=== PATIENT | male | born 1970 | race Caucasian/White ===

== ENCOUNTER 2017-01-08 11:08 | Inpatient (IN) | payer BC, OTHER ==
[~2017-01-08] VITALS: Ht 170.2 cm; Wt 79.4 kg
[2017-01-08 16:10] VITALS: BP 122/63
--- NOTE | 2017-01-08 16:10 | NUR ---
INTAKE ASSESSMENT Patient is 46 yo male patient presented for admission for supervised withdrawal from oxycodone. Patient is alert and oriented X4. Patient has NKA. Denies use of alcohol, uses e-cigarette. Vital signs: 122/68, HR 63, RR 18, 02 sat 98% RA, pain 0/10. Patient denies chest pain and SOB. Patient reports anxiety, nausea, tremors, sweating, stomach cramping and body aches. Patient has no rehab history. Patient reports last use of oxycodone was today 01/08/17, used 600mg, 1st use was 3 months ago, was using 1 pill sporadically and then increased to pills. Patient reports history of anxiety, depression, and low back pain. Denies history of seizure and fall. Patients home meds includes Xanax, lamictal, zyprexa, Mysoline and Effexor. Patient reports father has history of Type 2 diabetes. Willis routines explained to patient (i.e q4h vital, medication handling including narcotics , disposal of any contraband. Patient has no home meds. Patient appears to be stable to proceed with his admission to [facility] for further care.
[2017-01-08] MEDS ORDERED: ONDANSETRON ODT 4 MG TAB.RAPDIS SL PRN (16:45)
[2017-01-08] MEDS ORDERED: DICYCLOMINE HCL 20 MG TABLET PO PRN (16:45)
[2017-01-08] MEDS ORDERED: ACETAMINOPHEN 325 MG TABLET PO PRN (16:45)
[2017-01-08] MEDS ORDERED: IBUPROFEN 600 MG TABLET PO PRN (16:45)
[2017-01-08] MEDS ORDERED: diphenhydrAMINE 50 MG CAPSULE PO PRN (16:45)
[2017-01-08] MEDS ORDERED: BUPRENORPHINE HCL 2 MG TAB.SUBL SL PRN (16:45)
[2017-01-08] MEDS ORDERED: ONDANSETRON 4 MG/2 ML VIAL IM PRN (16:45)
[2017-01-08] MEDS ORDERED: LORAZEPAM 1 MG TABLET PO PRN ×3 (16:45→20:00)
[2017-01-08] MEDS ORDERED: LOPERAMIDE HCL 2 MG CAPSULE PO PRN ×2 (16:45)
[2017-01-08] MEDS ORDERED: MIRALAX 17 GM POWD.PACK PO PRN (16:45)
[2017-01-08] MEDS ORDERED: HYDROXYZINE PAMOATE 25 MG CAPSULE PO PRN (16:45)
[2017-01-08] MEDS ORDERED: MAG HYDROX/AL HYDROX/SIMETH 30 ML LIQUID UDC PO PRN (16:45)
--- NOTE | 2017-01-08 17:06 | NUR ---
DEFER REASSESSMENT OF ONE TIME LORAZEPAM, BACLOFEN, GABAPENTIN AND KETOROLAC IM INJECTION Patient appears asleep at this time, no respiratory distress noted.
[2017-01-08 17:26] LABS: ALANINE AMINOTRANSFERASE 122 U/L (16-63); ALKALINE PHOSPHATASE 60 U/L (50-136); ASPARTATE AMINOTRANSFERASE 39 U/L (15-37); BILIRUBIN,TOTAL 0.3 mg/dL (0.2-1.0); CARBON DIOXIDE 32 mmol/L (21-32); CHLORIDE 102 mmol/L (98-107); CREATININE 1.3 mg/dL (0.6-1.3); GLUCOSE 93 mg/dL (74-106); MAGNESIUM 1.9 mg/dL (1.8-2.4); TOTAL PROTEIN, SERUM 7.3 g/dL (6.4-8.2); UREA NITROGEN, BLOOD 12 mg/dL (7-18)
[2017-01-08 17:29] LABS: BASOPHILS # (AUTO) 0.1 K/uL (0.0-8.0); BASOPHILS % (AUTO) 0.6 % (0.0-2.0); EOSINOPHILS # (AUTO) 0.5 K/uL (0.0-0.7); EOSINOPHILS % (AUTO) 4.7 % (0.0-7.0); ETHANOL < 3 MG/DL (0-0); HEMATOCRIT 46.1 % (40-50); LYMPHOCYTES # (AUTO) 3.6 K/UL (0.8-4.8); LYMPHOCYTES % (AUTO) 32.2 % (20.5-51.5); MEAN CORPUSCULAR HEMOGLOBIN 28.1 UUG (27.0-31.0); MEAN CORPUSCULAR HGB CONC 33 g/dL (32.0-37.0); MEAN CORPUSCULAR VOLUME 86.3 FL (82.0-92.0); MONOCYTES # (AUTO) 0.9 K/UL (0.1-1.30); MONOCYTES % (AUTO) 8.2 % (0.0-11.0); NEUTROPHILS # (AUTO) 6.1 K/UL (1.8-8.9); NEUTROPHILS % (AUTO) 54.3 % (38.5-71.5); PLATELET COUNT (AUTO) 271 K/UL (150-450); RED BLOOD CELL COUNT(AUTO) 5.35 MIL/UL (4.7-6.1); WHITE BLOOD COUNT (AUTO) 11.2 K/UL (4.0-11.2)
[2017-01-08] MEDS ORDERED: LAMO100T2 PO (17:31)
[2017-01-08] MEDS ORDERED: VENL75CA56 PO (17:35)
[2017-01-08] MEDS ORDERED: OLAN2.5T3 PO (17:36)
[2017-01-08] MEDS ORDERED: PRIM50TA27 PO (17:36)
[2017-01-08] MEDS ORDERED: GABAPENTIN 300 MG CAPSULE PO ONE (18:00)
[2017-01-08] MEDS ORDERED: BACLOFEN 20 MG TABLET PO ONE (18:00)
[2017-01-08] MEDS ORDERED: KETOROLAC TROMETHAMINE 30 MG INJ IM ONE (18:00)
[2017-01-08] MEDS ORDERED: LORAZEPAM 1 MG TABLET PO ONE ×2 (18:00→21:00)
--- NOTE | 2017-01-08 18:06 | NUR ---
ONE TIME LORAZEPAM, BACLOFEN, GABAPENTIN AND KETOROLAC IM INJECTION Patient is complaining of moderate-severe body ache and reports increasing anxiety. Patient received one time order of lorazepam, baclofen, gabapentin, and ketorolac IM injection. Will continue to monitor patient.
[2017-01-08 18:21] LABS: *AMPHETAMINE, URINE NEGATIVE (NEGATIVE); *BARBITURATE, URINE POSITIVE (NEGATIVE); *CANNABINOID, URINE POSITIVE (NEGATIVE); *COCCAINE, URINE NEGATIVE (NEGATIVE); *OPIATE, URINE POSITIVE (NEGATIVE); *PHENCYCLIDINE SCREEN,URINE NEGATIVE (NEGATIVE)
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
[2017-01-08 20:00] VITALS: BP 122/90
[2017-01-08] MEDS ORDERED: LORAZEPAM 2 MG/1 ML VIAL IM PRN (20:00)
--- NOTE | 2017-01-08 20:00 | NUR ---
2000 Patient received sleeping soundly in prone position with deep, stenorous, even respirations at 14. Patient aroused for vital signs and nurse assess. Patient responds to nurse's greeting and introduction with brief eye contact and no verbalization. Patient does want answer nurse's assess questions, though they are clearly and repeatedly asked of him. Patient's color is tannish-pink and his skin is clean, warm, dry and intact. Patient's regular diet tray in untouched on his bedside table and he does not answer questions about anything. Vital signs are: 98.6-99-22 122/90, O2 Sat 97%, COWS 6 Patient offers no c/o anything or requests for anything and he does not answer when nurse asks him if he is feeling any pain or other discomforts at this time. Patient was admitted today, 01/08/17 for Oxycodone withdrawal and he is currently on PRN medications for withdrawal symptoms. Patient is overall non-verbal with eyes kept closed with virtually no interaction with nurse. Bed is locked and in lowest position, bed rails are up X 2 and call light within patient's easy reach.
[2017-01-08] MEDS: PRIMIDONE 50 MG TABLET PO SCH (21:00)
[2017-01-08] MEDS: GABAPENTIN 300 MG CAPSULE PO SCH (21:00)
[2017-01-08] MEDS ORDERED: PATIENT MAY USE OWN MED- MD OK PO SCH (21:00)
[2017-01-08] MEDS: METHOCARBAMOL 750 MG TABLET PO PRN (21:11)
--- NOTE | 2017-01-08 21:11 | NUR ---
PRN MEDICATION: Prn Robaxin 750 mg p.. given for c/o generalized body pain 02/07.
--- NOTE | 2017-01-08 21:12 | NUR ---
PRN MEDICATION: Prn Subutex 4 mg SL given for loud crying , body writhing, uncontrollable body shakes, high anxiety and increasing agitation. COWS 12. patient states loudly, " Oh! I will never go through this again!! Oh! It's terrible!"
--- NOTE | 2017-01-08 22:12 | NUR ---
REASSESSMENT PRN MEDICATION: Patient resting quietly. Aroused for COWS assess, COWS 4 at this time from 12 at 2111.
[2017-01-08] MEDS ORDERED: KETOROLAC TROMETHAMINE 30 MG INJ IM PRN (23:59)
[2017-01-09] VITALS: BP 129/83
[2017-01-09 04:00] VITALS: BP 135/84
[2017-01-09 06:07] LABS: HEPATITIS B SURFACE AG Negative (Negative)
--- NOTE | 2017-01-09 06:30 | NUR ---
0630 Patient slept a total of 8 hours/ 45 minutes and he had 0 voids and no stools. Total intake was 296 ml p.o. Prn medications given noted separately per floor protocol. V/SS afebrile, last COWS 1 at 0400. Patient is presently sleeping soundly with eyes closed and respirations deep, stenorous and unlabored at 14.
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
[2017-01-09 08:00] VITALS: BP 151/89
[2017-01-09] MEDS ORDERED: TUBERCULIN,PURIF.PROT.DERIV. 5 TU/0.1 ML TEST ID ONE (09:00)
[2017-01-09] MEDS: BUPRENORPHINE HCL 2 MG TAB.SUBL SL SCH ×4 (09:03→20:24)
[2017-01-09] MEDS: METHOCARBAMOL 750 MG TABLET PO PRN (09:05)
[2017-01-09] MEDS: CLONIDINE HCL 0.1 MG TABLET PO PRN (09:05)
[2017-01-09] MEDS: GABAPENTIN 300 MG CAPSULE PO SCH ×2 (09:05→20:26)
--- NOTE | 2017-01-09 09:05 | NUR ---
Toradol 30mg IM/Robaxin 750mg/Clonidine 0.1mg PO given: Patient's COWS 16/CIWA 13. Noted patient with generalized gross tremos. Anxious, agitated, tearful and complains of 9/10 generalized pain. Also noted with sweating. Denies S/I or H/I. Denies AV hallucinations. Mediated patient with Toradol 30 mg IM, Robaxin 750mg PO and Clonidine 0.1mg PO as ordered. BP 151/89, Pulse 100. PL 02/07. Will monitor for effectiveness. Safety precautions in place.
[2017-01-09] MEDS: MULTIVITAMINS,THERAPEUTIC TABLET PO SCH (09:06)
[2017-01-09] MEDS: LORAZEPAM 1 MG TABLET PO SCH ×4 (09:06→20:23)
--- NOTE | 2017-01-09 09:35 | NUR ---
Re-assessment: Toradol 30mg IM: Per patient, PRN Toradol was mildly effective in reducing patient's pain. Verbalized PL 4/10 at this time.
--- NOTE | 2017-01-09 10:05 | NUR ---
Re-assessment: Robaxin and Clonidine Per patient, PRN Robaxin was mildly effective in reducing pain. PL 4/10. Less anxiety, sweating and agitation noted. Will continue to monitor the patient and notify MD of patient's progress.
[2017-01-09] MEDS ORDERED: VENLAFAXINE XR 150 MG CAP.SR.24H PO SCH (11:45)
[2017-01-09] MEDS ORDERED: VENLAFAXINE XR 75 MG CAP.SR.24H PO SCH (11:45)
[2017-01-09] MEDS ORDERED: LAMOTRIGINE 100 MG TABLET PO SCH (11:45)
[2017-01-09 12:00] VITALS: BP 109/59
--- NOTE | 2017-01-09 12:48 | NUR ---
Psych MD Communication: Order clarification obtained from Dr. Guzman regarding Effexor and Lamictal medications. Per patient, he uses Effexor 75mg in AM and 150mg at HS and Lamictal 100 mg PO at HS. Informed Dr. Guzman and order clarification was obtained. Orders noted and carried out. is unable to enter in orders. MD is currently driving. Telephone order was obtained.
[2017-01-09 16:00] VITALS: BP 117/62
--- NOTE | 2017-01-09 16:41 | NUR ---
Psych MD Communication: Order clarification obtained from Dr. Guzman regarding Zyprexa. Per patient, he uses Zyprexa 2.5mg PO at HS to help with sleep. Informed Dr. Guzman and order clarification was obtained. Orders noted and carried out. MD is unable to enter in orders. is currently driving. Telephone order was obtained.
[2017-01-09] MEDS ORDERED: OLANZAPINE 2.5 MG TABLET PO SCH (18:00)
--- NOTE | 2017-01-09 19:10 | NUR ---
End of Shift Notes: Patient continues to be on 5-day Subutex and 5-day Ativan taper for opiate and BZO withdrawal. Taper was initiated today. No adverse reactions noted. Tolerating both taper well. VS monitored closely. Medicated patient with Clonidine 0.1mg PO at 0905 for BP of 151/89 and anxiety with help after 1 hour. Withdrawal symptoms were closely monitored. Initial COWS 16/CIWA 13, patient presented with severe pain, anxiety, agitation, gross tremors, sweating, chills, hot flashes, abdominal cramps and muscle aches and pains. Medicated patient with Toradol 30 mg IM at 0905 and Robaxin 750 mg PO at 0905 with help after 1 hour. Per patient, Subutex and Ativan has been helping him with his withdrawal symptoms. Last COWS 7/CIWA 7. Denies S/I or H/I. Denies AV hallucinations noted. Unable to participate in group and activities due to his withdrawal symptoms. All needs met and attended. Will continue to monitor closely.
--- NOTE | 2017-01-09 19:30 | NUR ---
Start of shift notes: Received patient in bed, awake, alert and oriented times 4. Speech is clear, normal rate and able to make known of his needs. Behavior; calm and cooperative with care. Patient is isolative to his room. Patient has bathroom privileges and continue to be monitor by staff. Denies SI/HI/AVH. NO behavior outburst. Will continue to monitor behavior and medication effectiveness throughout shift.
[2017-01-09 20:00] VITALS: BP 121/78
[2017-01-09] MEDS: VENLAFAXINE XR 150 MG CAP.SR.24H PO SCH (20:25)
[2017-01-09] MEDS: OLANZAPINE 2.5 MG TABLET PO SCH (20:25)
[2017-01-09] MEDS: LAMOTRIGINE 100 MG TABLET PO SCH (20:26)
[2017-01-09] MEDS: PRIMIDONE 50 MG TABLET PO SCH (20:26)
[2017-01-10 00:37] VITALS: BP 125/82
--- NOTE | 2017-01-10 00:39 | NUR ---
Patient asleep. Respiration even and unlabored. No signs of distress. Easily aroused but refused CIWA and COWS at this time. Addendum: 01/10/17 at 0042 by CAROLE GUERRERO RN Amended: Links added.
[2017-01-10 05:09] VITALS: BP 135/69
--- NOTE | 2017-01-10 06:42 | NUR ---
End of shift note: Patient remained calm and cooperative with care. Alert and oriented x4. No adverse reaction noted or reported at this time. Compliant with plan of care and all unit rules. Vital signs monitored and charted accordingly. Vital signs remained stable and WNL. COWS is 1 @ 0400. CIWA is 1 @0400. No behavior issues. Patient slept comfortably for 9 hours. No signs of distress. normal breathing pattern.
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
[2017-01-10 08:00] VITALS: BP 128/82
[2017-01-10] MEDS: METHOCARBAMOL 750 MG TABLET PO PRN (08:37)
[2017-01-10] MEDS: LORAZEPAM 1 MG TABLET PO SCH ×3 (08:37→21:23)
[2017-01-10] MEDS: GABAPENTIN 300 MG CAPSULE PO SCH (08:37)
[2017-01-10] MEDS: MULTIVITAMINS,THERAPEUTIC TABLET PO SCH (08:37)
[2017-01-10] MEDS: BUPRENORPHINE HCL 2 MG TAB.SUBL SL SCH ×3 (08:37→21:24)
[2017-01-10] MEDS: VENLAFAXINE 75 MG TABLET PO SCH (08:37)
--- NOTE | 2017-01-10 08:37 | NUR ---
Motrin 600 mg PO/Bentyl 20 mg PO and Robaxin 750 mg Po given: Patient noted with complain of 5/10 stomach cramps and generalized myalgia related to withdrawal symptoms. Also noted with complain of 5/10 headache. Medicated patient with Motrin 600 mg PO, Bentyl 20 mg PO and Robaxin 750 mg PO as ordered. Will continue to monitor for effectiveness.
[2017-01-10] MEDS ORDERED: VENLAFAXINE 25 MG TABLET PO SCH (09:00)
--- NOTE | 2017-01-10 09:37 | NUR ---
Re-assessment: Per patient, PRN Motrin, Robaxin and Bentyl was effective in reducing headache, myalgia and abdominal cramps. PL 07/10.
--- NOTE | 2017-01-10 11:00 | NUR ---
MD Communication: Pulse Notified Dr. Mcguire of patient's pulse trending from 50-60. Per MD Mcguire, NNO.
[2017-01-10 12:00] VITALS: BP 122/71
[2017-01-10] MEDS: BACLOFEN 10 MG TABLET PO SCH ×2 (15:00→21:23)
[2017-01-10] MEDS: DICYCLOMINE HCL 20 MG TABLET PO SCH ×2 (15:00→21:23)
[2017-01-10] MEDS: GABAPENTIN 400 MG CAPSULE PO SCH ×2 (15:00→21:23)
--- NOTE | 2017-01-10 15:30 | NUR ---
Bentyl/Baclofen and Gabapentin at 1500 not administered: Patient noted laying in bed with eyes closed. Respirations even and unlabored. Mentioned meds were held at this time. aware.
[2017-01-10 16:00] VITALS: BP 143/94
--- NOTE | 2017-01-10 18:59 | NUR ---
End of Shift Notes: Patient continues to be on 5-day Subutex and 5-day Ativan taper for opiate and BZO withdrawal. No adverse reactions noted. Tolerating both taper well. VS monitored closely. Withdrawal symptoms were closely monitored. Initial COWS 8/CIWA 7, patient presented with myalgia, anxiety, agitation, gross tremors, sweating, chills, hot flashes, abdominal cramps . Medicated patient with Robaxin 750 mg PO, Motrin 600 mg PO and bentyl as ordered at 0837 with help after 1 hour. Per patient, Subutex and Ativan has been helping him with his withdrawal symptoms. Last COWS 5/CIWA 5. Denies S/I or H/I. Denies AV hallucinations noted. Unable to participate in group and activities due to his withdrawal symptoms. All needs met and attended. Will continue to monitor closely.
[2017-01-10 20:00] VITALS: BP 133/84
--- NOTE | 2017-01-10 20:00 | NUR ---
START OF SHIFT NOTE PATIENT IN ROOM, RESTING. RECEIVED REPORT FROM DAY SHIFT NURSE. UPON GREETING, PATIENT REPORTS ANXIETY, SWEATING, NO N/V, POOR APPETITE, DID NOT ATTEND GROUPS. DENIES ANY PAIN AT THIS TIME. LUPE IS A 46 YEAR OLD MALE, ADMITTED FOR OPIOID , XANAX AND MARIJUANA DEPENDENCE. PATIENT IS ON 5 DAY ATIVAN AND 5 SUBUTEX TAPER. PATIENTS DRUG OF CHOICE ARE OXYCODONE, ALPRAZOLAM AND MARIJUANA. PATIENT WAS GIVEN PRN ROBAXIN, BENTYL AND MOTRIN. LAST COWS 5 AND CIWA 5. PATIENT IS ON FALL/SEIZURE PRECAUTION. SAFETY MEASURES ON PLACE. CALL LIGHT IN REACH. WILL CONTINUE TO MONITOR.
[2017-01-10] MEDS: LAMOTRIGINE 100 MG TABLET PO SCH (21:23)
[2017-01-10] MEDS: OLANZAPINE 2.5 MG TABLET PO SCH (21:23)
[2017-01-10] MEDS: VENLAFAXINE XR 150 MG CAP.SR.24H PO SCH (21:23)
[2017-01-10] MEDS: PRIMIDONE 50 MG TABLET PO SCH (21:23)
--- NOTE | 2017-01-11 | NUR ---
COWS/CIWA/VS PATIENT ASLEEP. COWS/CIWA UNABLE TO ASSESS. RESPIRATION EVEN AND UNLABORED. RR 15. SAFETY MEASURES IN PLACE. CALL LIGHT IN REACH. WILL CONTINUE TO MONITOR
--- NOTE | 2017-01-11 04:00 | NUR ---
COWS/CIWA/VS PATIENT ASLEEP. COWS/CIWA UNABLE TO ASSESS. RESPIRATION EVEN AND UNLABORED. RR 14. SAFETY MEASURES IN PLACE. CALL LIGHT IN REACH. WILL CONTINUE TO MONITOR
--- NOTE | 2017-01-11 07:07 | NUR ---
END OF SHIFT NOTE MONITORED PATIENT THROUGHOUT THE SHIFT. PATIENT CONTINUE ON ATIVAN AND SUBUTEX TAPER FOR OPIOID , XANAX AND MARIJUANA DEPENDENCE. TOLERATED WELL AND NO ADVERSE REACTION. PATIENTS DRUG OF CHOICE ARE OXYCODONE, ALPRAZOLAM AND MARIJUANA. PATIENT DID NOT REQUIRE ANY PRN MEDICATION. PATIENT STATES MEDICATION ARE EFFECTIVE IN CONTROLLING HIS WITHDRAWAL SYMPTOMS. PATIENT IS ON FALL/SEIZURE PRECAUTION. SAFETY MEASURES ON PLACE. CALL LIGHT IN REACH. WILL CONTINUE TO MONITOR. SLEPT 7 HOURS. FLUID INTAKE 796 ML. VOIDED X 1 . NO BM. LAST COWS 6 AND CIWA 5.
--- NOTE | 2017-01-11 07:50 | NUR ---
START OF SHIFT NOTE Received report from night nurse, 46 year old male admitted for Opioid/Benzo/ Marijuana dependance. Pt cont with Subutex/Ativan taper. Per night nurse pt were not given any PRN, Last COWS-6, CIWA-5, Slept for 7 hours. Received pt alert awake oriented x4 in stable condition. Breathing normal no SOB noted, Skin warm and dry to touch. Pt educated with plan of the day and medication regimen with good verbal understanding. All safety measures in place, Call light within reach. Will cont to monitor.
[2017-01-11 08:00] VITALS: BP 110/75
[2017-01-11] MEDS ORDERED: BUPRENORPHINE HCL 2 MG TAB.SUBL SL SCH (09:00)
[2017-01-11] MEDS ORDERED: BUPRENORPHINE HCL 2 MG TAB.SUBL SL ONE (10:45)
[2017-01-11] MEDS: DICYCLOMINE HCL 20 MG TABLET PO SCH ×3 (10:52→21:29)
[2017-01-11] MEDS: VENLAFAXINE 75 MG TABLET PO SCH (10:52)
[2017-01-11] MEDS: GABAPENTIN 400 MG CAPSULE PO SCH ×3 (10:52→21:28)
[2017-01-11] MEDS: MULTIVITAMINS,THERAPEUTIC TABLET PO SCH (10:52)
[2017-01-11] MEDS: LORAZEPAM 1 MG TABLET PO SCH ×3 (10:52→21:29)
[2017-01-11] MEDS: BACLOFEN 10 MG TABLET PO SCH (10:52)
[2017-01-11 12:00] VITALS: BP 138/78
[2017-01-11] MEDS: BUPRENORPHINE HCL 2 MG TAB.SUBL SL SCH ×2 (14:30→21:28)
[2017-01-11] MEDS: BACLOFEN 20 MG TABLET PO SCH ×2 (14:30→21:29)
[2017-01-11 16:00] VITALS: BP 126/74
--- NOTE | 2017-01-11 19:17 | NUR ---
END OF SHIFT NOTE Pt cont with Subutex and Ativan taper tolerating well. Pt did not receive any PRN medication during shift. Vital signs remained WNL. Pt able to consumed all his meals well. Encourage Po fluids as tolerated. Pt remained compliant with plan of care. Last CIWA score 4/COWS score 5. Pt attended groups and activities. All needs attended. Safety measures in place, Call light within reach. Pt endorsed to night nurse in stable condition.
[2017-01-11 20:00] VITALS: BP 133/82
--- NOTE | 2017-01-11 20:00 | NUR ---
Start of Shift Patient is a 46-year old, male, admitted for Opioid/Benzo/ Marijuana dependence. Patient was placed on a 5-day Subutex and 5-day Ativan tapers, tolerating well. Pt with NKA, is Full Code and on Regular Diet. Pt is AAOx4 and with slight anxiety noted. No SOB observed. Pt is ambulatory with steady gait. No skin issues. Pt is stable. Fall, universal and safety prec in place. Call light within reach. Latest COWS=5, CIWA=5. Will continue to monitor.
[2017-01-11] MEDS: OLANZAPINE 2.5 MG TABLET PO SCH (21:28)
[2017-01-11] MEDS: LAMOTRIGINE 100 MG TABLET PO SCH (21:29)
[2017-01-11] MEDS: PRIMIDONE 50 MG TABLET PO SCH (21:29)
[2017-01-11] MEDS: VENLAFAXINE XR 150 MG CAP.SR.24H PO SCH (21:29)
[2017-01-12] VITALS: BP 125/80
--- NOTE | 2017-01-12 04:00 | NUR ---
RN note Pt refused COWS and CIWA assessment and vital signs check despite explanation of risks and benefits. RR=14. Will continue to monitor.
--- NOTE | 2017-01-12 07:18 | NUR ---
End of Shift Patient is a 46-year old, male, admitted for Opioid/Benzo/ Marijuana dependence. Patient was placed on a 5-day Subutex and 5-day Ativan tapers, tolerating well. Pt with NKA, is Full Code and on Regular Diet. Pt is AAOx4 and with slight anxiety noted. No SOB observed. Pt is ambulatory with steady gait. No skin issues. Pt is stable. Fall, universal and safety prec in place. Call light within reach. Latest COWS=4, CIWA=3, slept for 7 hours. Endorsed to AM shift nurse for continuity of care.
[2017-01-12 08:00] VITALS: BP 124/82
--- NOTE | 2017-01-12 08:00 | NUR ---
START OF SHIFT NOTE Received report from night nurse, 46 year old male admitted for Opioid/Benzo/ Marijuana dependance. Pt cont with Subutex/Ativan taper. Per night nurse pt were not given any PRN, Last COWS-4, CIWA-3, Slept for 7 hours. Received pt alert awake oriented x4 in stable condition. Breathing normal no SOB noted, Skin warm and dry to touch. Pt educated with plan of the day and medication regimen with good verbal understanding. All safety measures in place, Call light within reach. Will cont to monitor.
[2017-01-12] MEDS: GABAPENTIN 400 MG CAPSULE PO SCH ×3 (08:36→20:47)
[2017-01-12] MEDS: BACLOFEN 20 MG TABLET PO SCH ×3 (08:36→20:48)
[2017-01-12] MEDS: MULTIVITAMINS,THERAPEUTIC TABLET PO SCH (08:37)
[2017-01-12] MEDS: DICYCLOMINE HCL 20 MG TABLET PO SCH ×3 (08:37→20:48)
[2017-01-12] MEDS: LORAZEPAM 1 MG TABLET PO SCH ×2 (08:37→20:48)
[2017-01-12] MEDS: BUPRENORPHINE HCL 2 MG TAB.SUBL SL SCH ×3 (08:37→20:48)
[2017-01-12] MEDS: VENLAFAXINE 75 MG TABLET PO SCH (08:37)
[2017-01-12 12:00] VITALS: BP 126/88
[2017-01-12 16:00] VITALS: BP 118/78
--- NOTE | 2017-01-12 19:06 | NUR ---
END OF SHIFT NOTE Pt is alert oriented x4. Pt cont with Subutex and Ativan taper tolerating well. Pt did not receive any PRN medication during shift. Vital signs remained WNL. Pt able to consumed all his meals well. Encourage Po fluids as tolerated. Pt remained compliant with plan of care. Last CIWA score 4, COWS score 4. Pt attended groups and activities. All needs attended. Safety measures in place, Call light within reach. Pt endorsed to night nurse in stable condition.
--- NOTE | 2017-01-12 19:15 | NUR ---
START OF SHIFT Received 46 year old male patient admitted on 01/08/17 for opiate dependency. Pt is full code with NKA. He reports a PMHx of anxiety, depression, low back pain, and surgery (pelvis) in 2013. He reports using Oxycodone 300-360 mg (inhalation) daily for 4 months. Last dose was on 01/08/17. Alprazolam 10 mg daily. Last dose was 01/07/17. And Marijuana intermittently. Pt placed on 5 day Ativan and 5 day Subutex taper started on 01/09/17 and tolerating well. Per endorsement, pt did not receive or request PRN medications. Pt is alert and oriented x4, breathing is even and unlabored, safety measures in place. Will continue to monitor.
[2017-01-12 20:00] VITALS: BP 132/79
[2017-01-12] MEDS: OLANZAPINE 2.5 MG TABLET PO SCH (20:48)
[2017-01-12] MEDS: PRIMIDONE 50 MG TABLET PO SCH (20:48)
[2017-01-12] MEDS: VENLAFAXINE XR 150 MG CAP.SR.24H PO SCH (20:48)
[2017-01-12] MEDS: LAMOTRIGINE 100 MG TABLET PO SCH (20:48)
--- NOTE | 2017-01-13 | NUR ---
VITALS REFUSED/COWS, CIWA DEFERRED 0000 vitals refused. COWS and CIWA deferred d/t pt lying in bed with eyes closed noted to be asleep. Respirations 16, breathing is even and unlabored. Safety measures in place. Will monitor.
--- NOTE | 2017-01-13 04:00 | NUR ---
VITALS REFUSED/COWS, CIWA DEFERRED 0400 vitals refused. COWS and CIWA deferred d/t pt lying in bed with eyes closed noted to be asleep. Respirations 16, breathing is even and unlabored. Safety measures in place. Will continue to monitor.
--- NOTE | 2017-01-13 06:52 | NUR ---
END OF SHIFT Pt is a 46 year old male patient admitted on 01/08/17 for opiate dependency. Pt is full code with NKA. He reports a PMHx of anxiety, depression, low back pain, and surgery (pelvis) in 2013. Pt continues on a 5 day Ativan and 5 day Subutex taper started on 01/09/17 and tolerating well. Pt did not receive or request PRN medications. He slept a total of 8 hrs, Intake: 1151 mL, Void: x3, BM:0, COWS;3, CIWA:3. Pt remains alert and oriented x4, breathing is even and unlabored, safety measures in place. Endorsed to oncoming shift.
--- NOTE | 2017-01-13 07:40 | NUR ---
START OF SHIFT NOTE Received report from night nurse, 46 year old male admitted for Opioid/Benzo/ Marijuana dependance. Pt cont with Subutex/Ativan taper. Per night nurse pt were not given any PRN, Last COWS-3, CIWA-3, Slept for 8 hours. Received pt alert awake oriented x4 in stable condition. Breathing normal no SOB noted, Skin warm and dry to touch. Pt educated with plan of the day and medication regimen with good verbal understanding. All safety measures in place, Call light within reach. Will cont to monitor.
[2017-01-13 08:00] VITALS: BP 135/83
[2017-01-13] MEDS: BACLOFEN 20 MG TABLET PO SCH ×3 (08:27→20:06)
[2017-01-13] MEDS: MULTIVITAMINS,THERAPEUTIC TABLET PO SCH (08:27)
[2017-01-13] MEDS: VENLAFAXINE 75 MG TABLET PO SCH (08:27)
[2017-01-13] MEDS: DICYCLOMINE HCL 20 MG TABLET PO SCH ×3 (08:27→20:06)
[2017-01-13] MEDS: GABAPENTIN 400 MG CAPSULE PO SCH ×3 (08:27→20:06)
[2017-01-13] MEDS ORDERED: LORAZEPAM 1 MG TABLET PO SCH (09:00)
[2017-01-13] MEDS ORDERED: BUPRENORPHINE HCL 2 MG TAB.SUBL SL SCH (09:00)
[2017-01-13 12:00] VITALS: BP 126/81
[2017-01-13] MEDS ORDERED: IBUP-1955 PO (14:31)
[2017-01-13] MEDS ORDERED: BACL20TA PO (14:31)
[2017-01-13] MEDS ORDERED: DIPH50CA37 PO (14:31)
[2017-01-13] MEDS ORDERED: DICY20TA28 PO (14:31)
[2017-01-13] MEDS ORDERED: HYDR-3895 PO (14:31)
[2017-01-13] MEDS ORDERED: GABA-536 PO (14:31)
[2017-01-13 15:47] LABS: *AMPHETAMINE, URINE NEGATIVE (NEGATIVE); *BARBITURATE, URINE NEGATIVE (NEGATIVE); *CANNABINOID, URINE NEGATIVE (NEGATIVE); *COCCAINE, URINE NEGATIVE (NEGATIVE); *OPIATE, URINE NEGATIVE (NEGATIVE); *PHENCYCLIDINE SCREEN,URINE NEGATIVE (NEGATIVE)
[2017-01-13 16:00] VITALS: BP 126/66
--- NOTE | 2017-01-13 18:55 | NUR ---
END OF SHIFT NOTE Pt is alert oriented x4. Pt completed Subutex and Ativan taper tolerating well. Pt scheduled for discharge tomorrow. Urine drug screen completed and placed in the chart. Pt did not receive any PRN medication during shift. Vital signs remained WNL. Pt able to consumed all his meals well. Encourage Po fluids as tolerated. Pt remained compliant with plan of care. Last CIWA score 1, COWS score 1. Pt attended groups and activities. All needs attended. Safety measures in place, Call light within reach. Pt endorsed to night nurse in stable condition.
--- NOTE | 2017-01-13 19:15 | NUR ---
START OF SHIFT Received 46 year old male patient admitted on 01/08/17 for opiate dependency. Pt is full code with NKA. He reports a PMHx of anxiety, depression, low back pain, and surgery (pelvis) in 2013. He reports using Oxycodone 300-360 mg (inhalation) daily for 4 months. Last dose was on 01/08/17. Alprazolam 10 mg daily. Last dose was 01/07/17. And Marijuana intermittently. Pt completed his 5 day Ativan and 5 day Subutex taper started on 01/09/17 and tolerated well. Per endorsement, pt did not receive or request PRN medications. Pt is scheduled to be DC tomorrow to home. Pt is alert and oriented x4, breathing is even and unlabored, safety measures in place. Will continue to monitor.
[2017-01-13 20:00] VITALS: BP 126/76
[2017-01-13] MEDS: LAMOTRIGINE 100 MG TABLET PO SCH (20:06)
[2017-01-13] MEDS: OLANZAPINE 2.5 MG TABLET PO SCH (20:06)
[2017-01-13] MEDS: PRIMIDONE 50 MG TABLET PO SCH (20:06)
[2017-01-13] MEDS: VENLAFAXINE XR 150 MG CAP.SR.24H PO SCH (20:06)
[2017-01-13 20:13] VITALS: BP 126/76
[2017-01-13] MEDS: CLONIDINE HCL 0.1 MG TABLET PO PRN (20:13)
--- NOTE | 2017-01-13 20:13 | NUR ---
PRN CLONIDINE Pt complains of anxiety/agitation. Pt observed to be restless in room. PRN Clonidine administered as ordered. Breathing is even and unlabored, safety measures in place. Will monitor.
--- NOTE | 2017-01-13 21:13 | NUR ---
PRN CLONIDINE REASSESSMENT PRN medication effective. Pt reports decrease in anxiety and agitation. Breathing is even and unlabored, safety measures in place. Will continue to monitor.
--- NOTE | 2017-01-14 | NUR ---
VITALS REFUSED/ COWS, CIWA DEFERRED 0000 vitals were refused. COWS and CIWA deferred d/t pt lying in bed with eyes closed noted to be asleep. Respirations 16, breathing is even and unlabored. Safety measures in place. Will continue to monitor.
--- NOTE | 2017-01-14 04:00 | NUR ---
VITALS REFUSED/ COWS, CIWA DEFERRED 0400 vitals were refused. COWS and CIWA deferred d/t pt lying in bed with eyes closed noted to be asleep. Respirations 16, breathing is even and unlabored. Safety measures in place. Will continue to monitor.
--- NOTE | 2017-01-14 07:10 | NUR ---
END OF SHIFT Pt is a 46 year old male patient admitted on 01/08/17 for opiate dependency. Pt is full code with NKA. He reports a PMHx of anxiety, depression, low back pain, and surgery (pelvis) in 2013. At 2012 pt received PRN Clonidine for complains of anxiety. He slept a total of7hrs, Intake:1975mL, Void:x2 BM: 0 COWS;7, CIWA:7. Pt is scheduled to be DC today to home. Pt remains alert and oriented x4, breathing is even and unlabored, safety measures in place. Endorsed to oncoming shift.
--- NOTE | 2017-01-14 07:15 | NUR ---
start of shift note: received pt from affiliate manager nurse, pt is in stable condition at this time, no s/s of pain or discomfort. pt is admitted to [facility] for opiate/benzo withdrawal/dependence. pt's last cows 7 and last ciwa 7 related to pt being discharged. pt is anxious and tremulous. will assist pt in discharging and will continue to monitor pt for any changes
[2017-01-14] MEDS: MULTIVITAMINS,THERAPEUTIC TABLET PO SCH (08:33)
[2017-01-14] MEDS: DICYCLOMINE HCL 20 MG TABLET PO SCH (08:33)
[2017-01-14] MEDS: BACLOFEN 20 MG TABLET PO SCH (08:33)
[2017-01-14] MEDS: VENLAFAXINE 75 MG TABLET PO SCH (08:33)
[2017-01-14] MEDS: GABAPENTIN 400 MG CAPSULE PO SCH (08:33)
--- NOTE | 2017-01-14 10:05 | NUR ---
discharge note: pt left the unit in stable condition, no s/s of pain or discomfort or any withdrawal symptoms, pt teaching was administered and pt verbalized understanding. pt's personal belongings were returned. pt will be transferred home via own transportation.
== END 2017-01-14 10:05 | disposition home or self-care (01) | DRG 895 ==
LOC: SRC 15:58
PROVIDERS: ADMIT Internal Medicine; ATTEND Internal Medicine
PROC: HZ2ZZZZ Detoxification Services for Substance Abuse Treatment (ICD-10-PCS; principal; 2017-01-08)
PROC: HZ31ZZZ Individual Counseling for Substance Abuse Treatment, Behavioral (ICD-10-PCS; 2017-01-10)
PROC: HZ41ZZZ Group Counseling for Substance Abuse Treatment, Behavioral (ICD-10-PCS; 2017-01-11)
DX: F11.23 Opioid dependence with withdrawal (principal); F31.62 Bipolar disorder, current episode mixed, moderate; I15.9 Secondary hypertension, unspecified; F17.290 Nicotine dependence, other tobacco product, uncomplicated; G89.29 Other chronic pain; F13.230 Sedative, hypnotic or anxiolytic dependence with withdrawal, uncomplicated; F41.9 Anxiety disorder, unspecified; G25.0 Essential tremor; F12.90 Cannabis use, unspecified, uncomplicated; Z83.3 Family history of diabetes mellitus; R74.0 Nonspecific elevation of levels of transaminase and lactic acid dehydrogenase [LDH]; M54.5 Low back pain; D18.00 Hemangioma unspecified site
CPT/HCPCS: 36415; 70030-TC; 80307; 80345; 80346; 80349; 80361; 83735; 85025; 86580; 86592; 86705; 86803; 87340; 87806; A4663; G0480; J1885